=== PATIENT | female | born 2005 | race Caucasian/White ===

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

== ENCOUNTER 2023-07-21 19:31 | Emergency (ER) | payer BC ==
[2023-07-21 20:09] VITALS: BP 122/70; PULSE 71; RESP 16; TEMP 98.1; BMI 19.8
== END 2023-07-21 20:12 | disposition home or self-care (01) ==
LOC: FER 19:31
DX: S03.42XA Sprain of jaw, left side, initial encounter (principal); W21.00XA Struck by hit or thrown ball, unspecified type, initial encounter; Y93.6A Activity, physical games generally associated with school recess, summer camp and children
CPT/HCPCS: 99283-25